=== PATIENT | male | born 1995 | race Native Hawaiian/Other Pacific Islander ===

== ENCOUNTER 2019-05-01 19:20 | Emergency (ER) | payer BC ==
[2019-05-01 19:39] VITALS: RESP 20
--- NOTE | 2019-05-01 19:55 | ED ---
Male Urogenital HPI - General Chief complaint: Urogenital Stated complaint: Swollen Testicles Time Seen by Provider: 05/01/19 19:37 Source: patient, RN notes reviewed, old records reviewed Mode of arrival: ambulatory Limitations: no limitations - History of Present Illness Initial comments: This is a [id number] presents today for evaluation regressed to scrotal tenderness right-sided scrotal tenderness patient accepted transfer from [facility]. Patient also dysuria the LAD and normal urinalysis. Patient sent here for evaluation and continued monitoring. Patient doesn't some dysuria but has been urinating completely with sudden onset of symptoms around 2 to 3:00 this afternoon. Significant right-sided pain was testicular pain redness and swelling. Otherwise patient has no significant transitional sick contacts no injury or trauma denies risky sexual behavior MD Complaint: testicle pain (right sided), testicle swelling -: hour(s) (5) Location: penis, right testicle Radiation: none Severity: severe Severity scale (1-10): 8 Quality: burning, sharp Consistency: constant Improves with: none Worsens with: none Reports: swelling - Related Data Home Medications Medication Instructions Recorded Confirmed No Known Home Medications 05/01/19 05/01/19 Allergies Allergy/AdvReac Type Severity Reaction Status Date / Time No Known Allergies Allergy Verified 05/01/19 19:38 Review of Systems ROS Statement: Those systems with pertinent positive or pertinent negative responses have been documented in the HPI. ROS Other: All systems not noted in ROS Statement are negative. Past Medical History Past Medical History: No Reported History Additional Past Medical History / Comment(s): kidney stones History of Any Multi-Drug Resistant Organisms: None Reported Past Surgical History: No Surgical Hx Reported Past Psychological History: No Psychological Hx Reported Smoking Status: Never smoker Past Alcohol Use History: Occasional Past Drug Use History: None Reported General Exam Limitations: no limitations General appearance: alert, in no apparent distress Head exam: Present: atraumatic, normocephalic, normal inspection Eye exam: Present: normal appearance, PERRL, EOMI. Absent: scleral icterus, conjunctival injection, periorbital swelling ENT exam: Present: normal exam, mucous membranes moist Neck exam: Present: normal inspection. Absent: tenderness, meningismus, lymphadenopathy Respiratory exam: Present: normal lung sounds bilaterally. Absent: respiratory distress, wheezes, rales, rhonchi, stridor Cardiovascular Exam: Present: normal rhythm, tachycardia, normal heart sounds. Absent: systolic murmur, diastolic murmur, rubs, gallop, clicks GI/Abdominal exam: Present: soft, normal bowel sounds. Absent: distended, tenderness, guarding, rebound, rigid External exam: Present: erythema, swelling (r testicle) Expanded Male exam: Present: erythema, other (no cremasteric, attempt to detorse made ) exam: Testicular Tenderness: Right, Testicular Swelling: Right, Testicular Mass: Right, Cremasteric Reflex Present: Left, Cremasteric Reflex Absent: Right Extremities exam: Present: normal inspection, full ROM, normal capillary refill. Absent: tenderness, pedal edema, joint swelling, calf tenderness Back exam: Present: normal inspection Neurological exam: Present: alert, oriented X3, CN II-XII intact Psychiatric exam: Present: normal affect, normal mood Skin exam: Present: warm, dry, intact, normal color. Absent: rash Course Vital Signs 05/01/19 19:32 Temperature 98.4 F Pulse Rate 102 H Respiratory 20 Rate Blood Pressure 129/72 O2 Sat by Pulse 100 Oximetry - Reevaluation(s) Reevaluation #1: 05/01/19 20:19 medical record is reviewed Reevaluation #2: 05/01/19 20:19 attempt to deTorse R testicle here in ED, minimal improvement in pain Medical Decision Making - Medical Decision Making 23-year-old here for evaluation patient's stay for evaluation of right-sided testicular pain and right-sided testicular hydrocele. Will take Motrin and Tylenol for pain at home and patient can be discharged - Lab Data Result diagrams: 05/01/19 20:35 05/01/19 20:35 Lab Results 05/01/19 05/01/19 05/01/19 Range/Units 20:35 20:35 20:42 WBC 11.9 H (3.8-10.6) k/uL RBC 4.61 (4.30-5.90) m/uL Hgb 14.4 (13.0-17.5) gm/dL Hct 41.8 (39.0-53.0) % MCV 90.6 (80.0-100.0) fL MCH 31.2 (25.0-35.0) pg MCHC 34.4 (31.0-37.0) g/dL RDW 11.9 (11.5-15.5) % Plt Count 199 (150-450) k/uL Neutrophils % 80 % Lymphocytes % 13 % Monocytes % 5 % Eosinophils % 0 % Basophils % 0 % Neutrophils # 9.5 H (1.3-7.7) k/uL Lymphocytes # 1.5 (1.0-4.8) k/uL Monocytes # 0.6 (0-1.0) k/uL Eosinophils # 0.1 (0-0.7) k/uL Basophils # 0.0 (0-0.2) k/uL Sodium 141 (137-145) mmol/L Potassium 4.1 (3.5-5.1) mmol/L Chloride 101 (98-107) mmol/L Carbon Dioxide 29 (22-30) mmol/L Anion Gap 11 mmol/L BUN 15 (9-20) mg/dL Creatinine 0.90 (0.66-1.25) mg/dL Est GFR (CKD-EPI)AfAm >90 (>60 ml/min/1.73 sqM) Est GFR (CKD-EPI)NonAf >90 (>60 ml/min/1.73 sqM) Glucose 93 (74-99) mg/dL Calcium 10.4 H (8.4-10.2) mg/dL Phosphorus 3.4 (2.5-4.5) mg/dL Magnesium 1.7 (1.6-2.3) mg/dL Total Bilirubin 0.8 (0.2-1.3) mg/dL AST 33 (17-59) U/L ALT 43 (21-72) U/L Alkaline Phosphatase 80 (38-126) U/L Total Protein 8.5 H (6.3-8.2) g/dL Albumin 5.1 H (3.5-5.0) g/dL Urine Color Yellow Urine Appearance Clear (Clear) Urine pH 6.0 (5.0-8.0) Ur Specific [place] 1.012 (1.001-1.035) Urine Protein Negative (Negative) Urine Glucose (UA) Negative (Negative) Urine Ketones Negative (Negative) Urine Blood Negative (Negative) Urine Nitrite Negative (Negative) Urine Bilirubin Negative (Negative) Urine Urobilinogen <2.0 (<2.0) mg/dL Ur Leukocyte Esterase Moderate H (Negative) Urine RBC 2 (0-5) /hpf Urine WBC 19 H (0-5) /hpf Urine Mucus Rare H (None) /hpf - Radiology Data Radiology results: report reviewed (US Positive for Right-Sided Hydrocele), image reviewed Disposition Clinical Impression: Hydrocele, right Disposition: HOME SELF-CARE Condition: Good Instructions (If sedation given, give patient instructions): Hydrocele (ED) Is patient prescribed a controlled substance at d/c from ED?: No Referrals: Rony Mejia MD [Primary Care Provider] - 1-2 days
[2019-05-01] MEDS ORDERED: MORPHINE SULFATE 4 MG/ML SYRINGE IV STA (20:05)
[2019-05-01] MEDS ORDERED: SODIUM CHLORIDE 0.9% 1,000 ML IV STA (20:05)
[2019-05-01 20:40] LABS: Basophils % (A) 0 %; Eosinophils # (A) 0.1 k/uL (0-0.7); Eosinophils % (A) 0 %; HCT 41.8 % (39.0-53.0); HGB 14.4 gm/dL (13.0-17.5); Lymphocytes # (A) 1.5 k/uL (1.0-4.8); Lymphocytes % (A) 13 %; MCH 31.2 pg (25.0-35.0); MCHC 34.4 g/dL (31.0-37.0); MCV 90.6 fL (80.0-100.0); Mean Platelet Volume 6.8; Monocytes # (A) 0.6 k/uL (0-1.0); Monocytes % (A) 5 %; Neutrophils # (A) 9.5 k/uL (1.3-7.7); Neutrophils % (A) 80 %; Platelet Count 199 k/uL (150-450); RBC 4.61 m/uL (4.30-5.90); RDW 11.9 % (11.5-15.5); WBC 11.9 k/uL (3.8-10.6)
[2019-05-01 20:51] LABS: ALT 43 U/L (21-72); AST 33 U/L (17-59); African American GFR (CKD) >90 (>60 ml/min/1.73 sqM); Albumin 5.1 g/dL (3.5-5.0); Alkaline Phosphatase 80 U/L (38-126); Anion Gap 11 mmol/L; Blood Urea Nitrogen 15 mg/dL (9-20); Calcium 10.4 mg/dL (8.4-10.2); Carbon Dioxide 29 mmol/L (22-30); Chloride 101 mmol/L (98-107); Glucose 93 mg/dL (74-99); Magnesium 1.7 mg/dL (1.6-2.3); Non-African American GFR(CKD) >90 (>60 ml/min/1.73 sqM); Phosphorus 3.4 mg/dL (2.5-4.5); Potassium 4.1 mmol/L (3.5-5.1); Sodium 141 mmol/L (137-145); Total Bilirubin 0.8 mg/dL (0.2-1.3); Total Protein 8.5 g/dL (6.3-8.2)
[2019-05-01 20:54] LABS: Appearance,Urine Clear (Clear); Bilirubin,Urine Negative (Negative); Blood,Urine Negative (Negative); Color,Urine Yellow; Glucose,Urine (UA) Negative (Negative); Ketones,Urine Negative (Negative); Leukocyte Esterase,Urine Moderate (Negative); Mucus,Urine Rare /hpf; Nitrite,Urine Negative (Negative); Protein,Urine Negative (Negative); RBC,Urine 2 /hpf (0-5); Specific Gravity,Urine 1.012 (1.001-1.035); Urobilinogen,Urine <2.0 mg/dL (<2.0); WBC,Urine 19 /hpf (0-5)
--- NOTE | 2019-05-01 21:17 | US ---
EXAMINATION TYPE: US scrotum with doppler. Grayscale and color Doppler Duplex imaging performed of t clarice scrotum. DATE OF EXAM: 05/01/2019 COMPARISON: NONE CLINICAL HISTORY: pain. Patient states right side pain and swelling starting today. No injury. EXAM MEASUREMENTS: TESTICLES: Right Testicle: 3.7 x 3.0 x 2.4 cm Left Testicle: 3.9 x 3.5 x 2.5 cm EPIDIDYMIS HEAD: Right Epididymis: 0.9 x 0.7 x 0.7 cm Left Epididymis: 1.1 x 0.7 x 1.0 cm Doppler performed to assess for testicular vascularity; good bilateral color flow and waveforms are s een. There is no evidence of testicular torsion. Presence of hydroceles: small right Presence of varicoceles: no IMPRESSION: There is a mild right-sided hydrocele. No testicular torsion or mass. No evidence of epid idymal mass.
[2019-05-01 22:03] VITALS: BP 132/91; PULSE 93; TEMP 98.1
== END 2019-05-01 22:03 | disposition home or self-care (01) ==
LOC: EC 19:20
DX: N43.3 Hydrocele, unspecified (principal); R00.0 Tachycardia, unspecified
CPT/HCPCS: 36415; 80053; 83735; 84100; 85025; 81001; 87086; 93975; 76870; 99284; 96374; 96361; J2270